=== PATIENT | female | born 1980 | race Caucasian/White ===

== ENCOUNTER 2016-06-29 18:50 | Emergency (ER) | payer BC ==
[~2016-06-29] VITALS: Ht 162.6 cm; Wt 47.6 kg
[2016-06-29 20:07] LABS: *BILIRUBIN,URIN NEGATIVE (NEGATIVE); *BLOOD, URINE NEGATIVE (NEGATIVE); *CLARITY,URINE CLEAR (CLEAR); *COLOR,URINE YELLOW (YELLOW); *KETONES,URINE NEGATIVE (NEGATIVE); *PROTEIN,URINE NEGATIVE (NEGATIVE); *UROBILINOGEN,URINE 0.2 E.U./dl (NORMAL); LEUKOCYTE ESTERASE ,URINE NEGATIVE (NEGATIVE); NITRITE, URINE NEGATIVE (NEGATIVE); UGLUCOSE NEGATIVE (NEGATIVE)
[2016-06-29 20:11] LABS: BASOPHILS # (AUTO) 0.1 K/uL (0.0-0.2); BASOPHILS % (AUTO) 0.7 % (0.0-2.0); EOSINOPHILS # (AUTO) 0.1 K/uL (0.0-0.7); EOSINOPHILS % (AUTO) 0.9 % (0.0-7.0); HEMATOCRIT 39.4 % (37.0-47.0); HEMOGLOBIN 13.2 g/dL (12.0-16.0); LYMPHOCYTES # (AUTO) 0.9 K/uL (0.8-4.8); LYMPHOCYTES % (AUTO) 8.3 % (20.5-51.5); MEAN CORPUSCULAR HEMOGLOBIN 30.6 uug (27.0-31.0); MEAN CORPUSCULAR HGB CONC 34 g/dL (32.0-37.0); MEAN CORPUSCULAR VOLUME 91.2 fL (81.0-99.0); MONOCYTES # (AUTO) 0.8 K/uL (0.1-1.30); MONOCYTES % (AUTO) 7.7 % (0.0-11.0); NEUTROPHILS # (AUTO) 8.6 K/uL (1.8-8.9); NEUTROPHILS % (AUTO) 82.4 % (38.5-71.5); PLATELET COUNT (AUTO) 214 K/uL (150-450); RED BLOOD CELL COUNT(AUTO) 4.32 MIL/uL (4.20-5.40); RED CELL DISTRIBUTION WIDTH 11.9 % (11.5-14.5); WHITE BLOOD COUNT (AUTO) 10.5 K/uL (4.0-11.2)
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
[2016-06-29 20:17] LABS: *URINE HCG, QUAL NEGATIVE (NEGATIVE); SQUAMOUS EPITHELIAL CELL,UR FEW /HPF (NONE SEEN); WBC,URINE NONE SEEN /HPF (0-3)
[2016-06-29 20:18] LABS: CALCIUM 8.2 mg/dL (8.5-10.1); CREATININE 0.7 mg/dL (0.6-1.3); POTASSIUM 3.9 mmol/L (3.5-5.1)
[2016-06-29 20:24] LABS: ALBUMIN 3.6 g/dL (3.4-5.0); BILIRUBIN,DIRECT 0.1 mg/dL (0.0-0.2); BILIRUBIN,TOTAL 0.5 mg/dL (0.2-1.0); TOTAL PROTEIN, SERUM 6.9 g/dL (6.4-8.2)
[2016-06-29 20:29] LABS: BAND % (MANUAL) 9 % (0-10); LYMPHOCYTES % (MANUAL) 10 % (20-40); MONOCYTES % (MANUAL) 7 % (2-10); NEUTROPHILS % (MANUAL) 74 % (42-75); PLATELET ESTIMATE ADEQUATE
--- NOTE | 2016-06-29 21:24 | NUR ---
Patient informed staff that her car was parked at the [employer] [facility] parking lot and she stated she would like to walk there, re-park her car, and return. SERG stated OK.
--- NOTE | 2016-06-29 22:30 | NUR ---
Patient returned to room, [employer] at bedside.
--- NOTE | 2016-06-29 22:59 | NUR ---
Patient asked to remain in room for discharge paperwork. However, patient eloped from facility. ER physician notified.
--- NOTE | 2016-06-29 22:59 | NUR ---
Zay green in ED - 06/29/16 at 2259 by DAMIEN Patient discharged to home in stable conditon. Written and verbal after care instructions given. Patient verbalizes understanding of instructions.
[2016-07-04 05:34] LABS: CHLAMYDIA TRACHOMATIS NAA Negative (Negative); NEISSERIA GONORRHOEAE NAA Negative (Negative)
== END 2016-06-29 23:02 | disposition home or self-care (01) ==
LOC: ER 18:55
DX: A64 Unspecified sexually transmitted disease (principal); R10.9 Unspecified abdominal pain; F17.200 Nicotine dependence, unspecified, uncomplicated
CPT/HCPCS: 36415; 80048; 80076; 81001; 83690; 84703 ×2; 85025; 87086; 87210; 87491; 87591; 99284; A4663